=== PATIENT | female | born 1990 | race Caucasian/White ===

== ENCOUNTER → 2016-11-18 | Outpatient (CLI) | payer MEDICAID ==
[~2016-11-18] MED LIST: IRON18TA PO; PREN1TAB49
--- NOTE | 2016-11-18 15:17 | RADRPT ---
PROCEDURE: OB Ultrasound. CLINICAL INDICATION: Positive test. Uncertain size and dates. TECHNIQUE: Ultrasound of the pelvis was performed with transabdominal sonography in the axial and sagittal planes. COMPARISON: No prior study is available for comparison. FINDINGS: There is a single intrauterine gestational sac. pole and yolk sac are present. There is heart motion. heart rate is 124 beats per minute. Micro-rump length is 0.64 cm. Mean sac diameter is 1.67 cm. There is a moderate subchorionic hemorrhage. Menstrual age by ultrasound dates is 6 weeks 3 days. This indicates an expected date of delivery of 07/11/2017. The right ovary measures 2.8 x 1.4 x 1.5 cm. The left ovary measures 3.5 x 1.9 x 2.3 cm. Color Doppler and pulsed Doppler sonography demonstrate normal flow to both ovaries. There is no ovarian enlargement or mass. There is no other pelvic mass or free fluid. IMPRESSION: 1. Single live intrauterine gestation of 6 weeks 3 days menstrual age by ultrasound dates. 2. Expected date of delivery is 07/11/2017. 3. Subchorionic hemorrhage. RPTAT: QQ .Nik Michael MD, Date Time Electronically viewed and signed by .Nik Michael MD, on 11/18/2016 15:17 .R/
== END | disposition home or self-care (01) ==
LOC: U/S 09:59
PROVIDERS: ATTEND Obstetrics & Gynecology
DX: O26.849 Uterine size-date discrepancy, unspecified trimester (principal); Z3A.00 Weeks of gestation of pregnancy not specified
CPT/HCPCS: 76801

== ENCOUNTER 2017-07-11 19:21 | Inpatient (IN) | payer MEDICAID ==
[~2017-07-11] VITALS: Ht 152.4 cm; Wt 81.0 kg
[2017-07-11] MEDS ORDERED: FOLI-49 PO (20:02)
[2017-07-11 20:03] VITALS: BP 117/66; PULSE 87; RESP 18; Ht 152.4 cm; Wt 81.0 kg
--- NOTE | 2017-07-11 20:48 | RADRPT ---
PROCEDURE: Obstetrical ultrasound for biophysical profile CLINICAL INDICATION: Biophysical profile. . Post dates TECHNIQUE: Obstetrical ultrasound of the uterus for biophysical profile. Transabdominal views are obtained. COMPARISON: 02/15/2017 FINDINGS: Single intrauterine gestation. Presentation: Cephalic. Placenta: Fundal No evidence of placental abruption. No evidence of placenta previa. breathing movement = 2/2 tone = 2/2 motion = 2/2 JAKY = 2/2 JAKY = 10.9 cm heart rate: 150 beats per minute IMPRESSION: Single intrauterine gestation. Biophysical profile 06/06 RPTAT: AADD .Kyle Arriaga MD, MD Date Time Electronically viewed and signed by .Kyle Arriaga MD, on 07/11/2017 20:48 .B/
--- NOTE | 2017-07-11 20:52 | RADRPT ---
PROCEDURE: Obstetrical ultrasound. CLINICAL INDICATION: , evaluation. Pelvic pain. Post dates TECHNIQUE: Transabdominal sonographic images of the uterus obtained after first trimester , greater than 14 weeks gestation. Single intrauterine gestation present. COMPARISON: 02/15/2017 FINDINGS: Single intrauterine gestation. There is a cephalic presentation. Measurements were made in order to determine age. The results are as follows: BPD = 36 weeks 6 day(s) HC = 37 weeks 0 day(s) AC = 38 weeks 0 day(s) FL = 38 weeks 5 day(s) Heart rate = 150 beats per minute The placenta is fundal. There is no evidence for an abruption or placenta previa. Ovaries are not visualized. IMPRESSION: Single intrauterine gestation of approximately 37 weeks 5 days by ultrasound criteria. [place] estimated weight = 3330 g; 17 percentile for gestational age of 41 weeks 0 days. RPTAT: AADD .Kyle Arriaga MD, MD Date Time Electronically viewed and signed by .Kyle Arriaga MD, on 07/11/2017 20:51 .B/
--- NOTE | 2017-07-11 21:01 | TRIAGE ---
OB Triage Datetime Report Generated by CPN: 07/11/2017 21:01 Datetime: 07/11/2017 19:59 Assessment Type: Triage Maternal Assessment Level of Consciousness: Fully Conscious DTR's/Clonus: DTRs 2+; No Clonus Headache: Denies Blurred Vision: No Respiratory Effort: Unlabored; Regular Rhythm; Equal Expansion Breath Sounds, Left: Clear and Equal Breath Sounds, Right: Clear and Equal Nausea/Vomiting: Denies RUQ Epigastric Pain: Denies Lower Extremities Edema: None Degree: None Upper Extremities Edema: None Degree: None Facial Edema: None Fall Risk Assessment History of Falling: (0) No Secondary Diagnosis: (0) No Ambulatory Aid: (0) Bedrest/Nurse Assist IV Therapy: (0) No Gait: (0) Normal/Bedrest/Immobile Mental Status: (0) Oriented to Own Ability Fall Score: 0 Fall Risk Score Definition: No Risk: No action required Datetime: 07/11/2017 19:56 Labor Evaluation Monitor Mode: External Heart Rate Monitor Mode: External US Datetime: 07/11/2017 19:51 Time of Arrival: 07/11/2017 19:17 EGA: 41.0 Arrived By: Ambulatory Arrived From: Home Chief Complaint: PT HERE FOR NST/BPP/EFW Movement: Present Contractions: Denies/Absent Rupture of Membranes: Denies Vaginal Bleeding: None Vaginal Discharge: Denies Recent Sexual Intercouse: Denies Abdominal Trauma: Not Applicable Patient Complaints: None Time Provider Notified: 07/11/2017 21:55 Provider Notified: ANGIE Initial Plan: EFM/BPP/EFW
[2017-07-11] MEDS ORDERED: IBUPROFEN 600 MG TAB PO PRN (21:30)
[2017-07-11] MEDS ORDERED: METHYLERGONOVINE 0.2 MG INJ IM PRN (21:30)
[2017-07-11] MEDS ORDERED: LACTATED RINGER'S 1,000 ML IV PRN (21:30)
[2017-07-11] MEDS ORDERED: OXYCODONE/ASPIRIN (4.88/325) TAB PO PRN (21:30)
[2017-07-11] MEDS ORDERED: LIDOCAINE 1% (MPF) 30 ML INJ INJ PRN (21:30)
[2017-07-11] MEDS ORDERED: OXYTOCIN 30 UNITS/LR 500 ML IV PRN (21:30)
[2017-07-11] MEDS ORDERED: CARBOPROST 250 MCG INJ IM PRN (21:30)
[2017-07-11] MEDS ORDERED: MISOPROSTOL 200 MCG TAB PR PRN (21:30)
[2017-07-11] MEDS: LACTATED RINGER'S 1,000 ML IV SCH (21:55)
[2017-07-11] MEDS ORDERED: OXYTOCIN 30 UNITS/LR 500 ML IV SCH ×3 (22:00→22:30)
--- NOTE | 2017-07-11 22:11 | HP ---
Date/Time of Note Date/Time of Note DATE: 07/11/17 TIME: 22:08 OB - History Hx of Present Chief Complaint: postdate Estimated Due Date: Jul 04, 2017 : 3 Para: 2 Spontaneous : 0 Therapeutic : 0 Care: Good Care Ultrasounds: Normal mid trimester US Obstetrical Complications: None Medical Complications: None Past Family/Social History * Past Medical, Surgical, Family and Obstetric Histories reviewed from chart. GBS Status: Positive OB Admission Exam Vital Signs Vital Signs Vital Signs Date Time Temp Pulse Resp B/P Pulse Ox O2 Delivery O2 Flow Rate FiO2 07/11/17 20:03 99.8 87 18 117/66 99 Room Air Physical Exam HEENT: WNL Heart: Rhythm Normal Lungs: Clear, Equal Abdomen: WNL Extremities: Normal Reflexes: Normal Cervical Dilatation: 2cm Effacement: 50% Station: -2 Membranes: Intact Heart Rate: 140's Accelerations: Accelerations Present Decelerations: No Decelerations Varibility: Moderate OB Assessment/Plan Reason for admission: induction of labor Plan: Induction Induction Method: per Pitocin Protocol MARGARETTE ADAMS MD Jul 11, 2017 22:11
[2017-07-11 22:27] LABS: BASOPHILS % 0.3 % (0.0-2.0); EOSINOPHILS % 0.4 % (0.0-7.0); HEMATOCRIT 36.8 % (37.0-47.0); LYMPHOCYTES # 1.7 10^3/ul (0.8-2.9); LYMPHOCYTES % 14.7 % (15.0-51.0); MEAN CORPUSCULAR HEMOGLOBIN 28.7 pg (29.0-33.0); MEAN CORPUSCULAR HGB CONC 32.6 g/dl (32.0-37.0); MEAN PLATELET VOLUME 10.6 fl (7.4-10.4); MONOCYTE # 0.6 10^3/ul (0.3-0.9); MONOCYTES % 5.5 % (0.0-11.0); NEUTROPHILS % 78.5 % (39.0-77.0); PLATELET COUNT 325 10^3/UL (140-415); RED BLOOD COUNT 4.18 10^6/ul (4.20-5.40); RED CELL DISTRIBUTION WIDTH 14.1 % (11.5-14.5); WHITE BLOOD COUNT 11.3 10^3/ul (4.8-10.8)
[2017-07-11] MEDS ORDERED: AMPICILLIN 2 GM/NS (PMX) 100 ML IV ONE (22:30)
[2017-07-11 22:41] LABS: INR 0.91; PROTIME 12.3 Sec (12.2-14.2)
[2017-07-11 22:42] LABS: PARTIAL THROMBOPLASTIN TIME 24.8 Sec (25.0-35.0)
[2017-07-12] MEDS ORDERED: MINERAL OIL LIGHT 10 ML VIAL TOP ONE (01:00)
[2017-07-12] MEDS: AMPICILLIN 1 GM/NS (PMX) 50 ML IV SCH ×2 (02:55→06:39)
[2017-07-12] MEDS: LACTATED RINGER'S 1,000 ML IV SCH (04:10)
[2017-07-12] MEDS ORDERED: BUTORPHANOL 2 MG INJ IV PRN (05:00)
--- NOTE | 2017-07-12 09:20 | LDN ---
Date/Time of Note Date/Time of Note DATE: 07/12/17 TIME: 09:18 Delivery Summary Weeks of Gestation 41 weeks Placenta Delivered: Spontaneously Meconium: Thick Episiotomy: No Perineal laceration: 0 Anesthesia type: None Estimated blood loss: 200 Sponge & Needle done & correct: Yes All needle counts correct: Yes Any foreign bodies felt in the: No Problems: Delivery Information Sex Infant Sex: female Apgars 1 Minute: 9 5 Minute: 9 Suctioning Nose & mouth suctioned at meli: Yes Delee suction performed: No Umbilical Cord Umbilical cord with: 3 Vessels Cord presentations: no nuchal cord Cord Blood was obtained: Yes Mother & Baby Disposition Disposition Mom & Baby to Maternity; Good: Yes MARGARETTE ADAMS MD Jul 12, 2017 09:20
[2017-07-12 09:55] VITALS: BP 101/56; PULSE 66; RESP 18
[2017-07-12] MEDS: LACTATED RINGER'S 1,000 ML IV* SCH ×2 (09:59→17:59)
[2017-07-12] MEDS ORDERED: ACETAMINOPHEN 325 MG TAB PO PRN (10:00)
[2017-07-12] MEDS ORDERED: BENZOCAINE 20% 56 ML SPRAY TOP PRN (10:00)
[2017-07-12] MEDS ORDERED: CARBOPROST 250 MCG INJ IM PRN (10:00)
[2017-07-12] MEDS ORDERED: OXYTOCIN 30 UNITS/LR 500 ML IV PRN (10:00)
[2017-07-12] MEDS ORDERED: WITCH HAZEL/GLYCERIN PAD PR PRN (10:00)
[2017-07-12] MEDS ORDERED: METHYLERGONOVINE 0.2 MG INJ IM PRN (10:00)
[2017-07-12] MEDS ORDERED: DIBUCAINE 1% 30 GM OINT PR PRN (10:00)
[2017-07-12] MEDS ORDERED: LANOLIN 7 GM TUBE TOP PRN (10:00)
[2017-07-12] MEDS ORDERED: MISOPROSTOL 200 MCG TAB PR PRN (10:00)
[2017-07-12] MEDS: IBUPROFEN 600 MG TAB PO SCH ×2 (12:17→18:21)
[2017-07-12 12:30] VITALS: BP 100/59; PULSE 71; RESP 17
[2017-07-12 16:00] VITALS: BP 96/54; PULSE 82; RESP 17
[2017-07-12 20:15] VITALS: BP 98/52; PULSE 73; RESP 18
[2017-07-12] MEDS: SENNA/DOCUSATE NA (8.6MG/50MG) TAB PO SCH (21:53)
[2017-07-13 00:15] VITALS: BP 100/51; PULSE 76; RESP 18
[2017-07-13] MEDS: IBUPROFEN 600 MG TAB PO SCH ×5 (00:17→23:46)
[2017-07-13] MEDS: LACTATED RINGER'S 1,000 ML IV* SCH (01:59)
[2017-07-13 04:30] VITALS: BP 95/56; PULSE 71; RESP 18
[2017-07-13 09:00] VITALS: BP 91/52; PULSE 70; RESP 17
[2017-07-13] MEDS: SENNA/DOCUSATE NA (8.6MG/50MG) TAB PO SCH ×2 (09:21→21:08)
[2017-07-13 10:23] LABS: BASOPHIL # 0.1 10^3/ul (0.0-0.1); BASOPHILS % 0.5 % (0.0-2.0); EOSINOPHILS # 0.2 10^3/ul (0.0-0.5); EOSINOPHILS % 1.2 % (0.0-7.0); HEMATOCRIT 34.7 % (37.0-47.0); HEMOGLOBIN 10.9 g/dl (12.0-16.0); LYMPHOCYTES # 1.5 10^3/ul (0.8-2.9); LYMPHOCYTES % 11.2 % (15.0-51.0); MEAN CORPUSCULAR HEMOGLOBIN 27.9 pg (29.0-33.0); MEAN CORPUSCULAR HGB CONC 31.4 g/dl (32.0-37.0); MEAN CORPUSCULAR VOLUME 88.7 fl (82.0-101.0); MONOCYTE # 0.5 10^3/ul (0.3-0.9); MONOCYTES % 3.9 % (0.0-11.0); NEUTROPHIL # 10.9 10^3/ul (1.6-7.5); NEUTROPHILS % 82.7 % (39.0-77.0); PLATELET COUNT 306 10^3/UL (140-415); RED BLOOD COUNT 3.91 10^6/ul (4.20-5.40); RED CELL DISTRIBUTION WIDTH 14.5 % (11.5-14.5); WHITE BLOOD COUNT 13.2 10^3/ul (4.8-10.8)
--- NOTE | 2017-07-13 14:23 | QN ---
Documentation Comment ppd1 pt doing well vss exam wnl a/p ppd 1 continue care CHUCKY VALVERDE MD Jul 13, 2017 14:23
[2017-07-13 16:00] VITALS: BP 99/58; PULSE 72; RESP 17
[2017-07-13 19:45] VITALS: BP 95/59; PULSE 75; RESP 18
[2017-07-14 04:30] VITALS: BP 99/60; PULSE 76; RESP 18
[2017-07-14] MEDS: IBUPROFEN 600 MG TAB PO SCH ×3 (05:42→18:00)
[2017-07-14 08:00] VITALS: BP 98/54; PULSE 67; RESP 18
[2017-07-14] MEDS ORDERED: DIPHTH/TET/ACEL PERTUSS (ADULT) 0.5 ML VIAL IM* ONE (09:00)
[2017-07-14] MEDS: SENNA/DOCUSATE NA (8.6MG/50MG) TAB PO SCH (09:46)
[2017-07-14 16:00] VITALS: BP 105/65; PULSE 66
== END 2017-07-14 19:00 | disposition home or self-care (01) | DRG 775 ==
LOC: OBT 19:21 → L-D 19:22 → OBT 21:00 → L-D 21:00 → PP1 07-12 09:57
PROVIDERS: ADMIT Obstetrics & Gynecology; ATTEND Obstetrics & Gynecology
PROC: 10E0XZZ Delivery of Products of Conception, External Approach (ICD-10-PCS; principal; 2017-07-12)
PROC: 3E033VJ Introduction of Other Hormone into Peripheral Vein, Percutaneous Approach (ICD-10-PCS; 2017-07-12)
DX: O48.0 Post-term pregnancy (principal); Z37.0 Single live birth; Z3A.41 41 weeks gestation of pregnancy
CPT/HCPCS: 76815; 76818; 85025; 85610; 85730; 86592; 86900; 86901; 87340; 90715; 99464; G0463; J0290; J0595; J2590; J7120